=== PATIENT | female | born 1990 | race Two or more races ===

== ENCOUNTER 2018-03-23 11:50 | Inpatient (IN) | payer OTHER ==
[2018-03-24] MEDS ORDERED: DEXTROSE 5%-LACTATED RINGERS 1,000 ML IV SCH (00:45)
[2018-03-24] MEDS ORDERED: BUTORPHANOL TARTRATE 1 MG/ML VIAL IVPB ONE (00:57)
[2018-03-24] MEDS ORDERED: PROMETHAZINE HCL 25 MG/1 ML VIAL IVPUSH ONE (00:57)
[2018-03-24] MEDS ORDERED: AMPICILLIN - 2 GM in SODIUM CHLORIDE 100 ML IVPB ONE (01:00)
[2018-03-24] MEDS ORDERED: AMPICILLIN SODIUM 2 GM VIAL ONE (01:01)
[2018-03-24 01:21] LABS: INR 0.89 (0.83-1.09); PROTHROMBIN TIME (PATIENT) 10.5 SEC (9.7-13.0)
[2018-03-24 01:23] LABS: ACTIVATED PTT 25.9 SECONDS (25.2-36.5)
[2018-03-24 01:27] LABS: ANION GAP 10 MMOL/L (8-16); BLOOD UREA NITROGEN 6 mg/dL (7-18); CALCIUM 9.1 mg/dL (8.5-10.1); CHLORIDE 104 mmol/L (98-107); CO2 24 mmol/L (21-32); CREATININE 0.6 mg/dL (0.55-1.3); GLUCOSE,RANDOM 98 mg/dL (74-106); POTASSIUM 4.2 mmol/L (3.5-5.1); SODIUM 138 mmol/L (136-145)
[2018-03-24 01:30] LABS: BASO % 0.6 % (0-2.0); EOS % 1.4 % (0-4.5); HEMATOCRIT 39.3 % (32.4-45.2); HEMOGLOBIN 13.3 GM/dL (10.7-15.3); LYMPH % 23.2 % (8-40); MCH 28.3 pg (25.7-33.7); MEAN CELL VOLUME 83.3 fl (80-96); MEAN PLT VOLUME 9.8 fl (7.5-11.1); MONO % 7.4 % (3.8-10.2); NEUT % 67.4 % (42.8-82.8); PLATELET COUNT 204 K/MM3 (134-434); RBC 4.72 M/mm3 (3.60-5.2); RDW 14.8 % (11.6-15.6); WHITE BLOOD COUNT 11.1 K/mm3 (4.0-10.0)
--- NOTE | 2018-03-24 01:31 | HP ---
Past Medical History - Primary Care Physician PCP:: Maryse Fine - Admission Chief Complaint: 28 yrs , 39.4 weeks by dates , 39 weeks by sono c/o SROM at 8.45PM, Onset LP since (30 PM on 03/23/18. pt was evaluated for labor assess on 03/21/18, sent home . rx terazol 3 cream was given for yeast infection History of Present Illness: pt started care with Dr Austin PMBruce 's office, transferred to [address] [place] [address] . Only one visit panel 08/12/17 O pos, Hbsag neg, VDRL, nr, Rubella immune, varicella iimune, Hiv neg, Cf screen neg, sickle neg 1 hr Gtt 88 Quad screen neg, NT screen neg serial sono done by [facility] office for growth 01/06/18 & 02/14/18 sono reveals Left Kidney ,lower pole 1 cm cyst 02/14/18 32 weeks , all sono reports noted History Source: Patient, Medical Record Limitations to Obtaining History: No Limitations - Past Medical History [employer] J[employer]ER: No: Migraine, Seizure Cardiovascular: No: HTN, Murmur Pulmonary: No: Asthma, COPD Gastrointestinal: Yes: Constipation Hepatobiliary: No: Hepatitis B Renal/: No: UTI Reproductive: Yes: Other (pap 05/26/2017 neg) ...: 2 ...Para: 0 ...Term: 0 ...: 0 ...Spon : 1 ...Induced : 0 ...Multiple Gestation: 0 ...LMP: 06/20/17 ... Weeks Gestation by Dates: 39.4 ...EDC by Dates: 03/27/18 ...EDC by Sono: 03/31/18 (39 weeks by sono ) Heme/Onc: No: Anemia, B12 Deficiency, Bleeding Disorder, Cancer, Current Chemotherapy, Current Radiation Therapy, Hemochromatosis, Hypercoaguable State, Myeloproliferative Synd, Sickle Cell Disease, Sickle Cell Trait, Thrombocytopenia, Other Infectious Disease: No: AIDS, C-Diff, Herpes Zoster, HIV, MRSA, STD's, Tuberculosis, VREF, Other Psych: No: Addictions, Anxiety, Bipolar, Depression, Panic, Psychosis, Schizophrenia, Other Endocrine: No: Coffee's Disease, Kavon's Disease, Diabetes Insipidus, Diabetes Mellitus, Hyperparathyroidism, Hyperthyroidism, Hypothyroidism, Osteopenia, SIADH, Other - Past Surgical History Past Surgical History: Yes: None Hx Myomectomy: No Hx Transabdominal Cerclage: No - Smoking History Smoking history: Never smoked Have you smoked in the past 12 months: No - Alcohol/Substance Use Hx Alcohol Use: No History of Substance Use: reports: None Home Medications - Allergies Allergies/Adverse Reactions: Allergies Allergy/AdvReac Type Severity Reaction Status Date / Time No Known Drug Allergies Allergy Verified 03/24/18 01:04 seafood Allergy Intermediate Vomiting Uncoded 03/21/18 18:34 - Home Medications Home Medications: Ambulatory Orders Mljlydim19/Iron/Folic Acid/Dha [Prena1 Suzanna Softgel] 1 each PO DAILY 10/12/15 Miconazole Nitrate [Monistat 3] 15 gm VG HS #1 pkg 03/21/18 Physical Exam - Maternity Vital Signs: Vital Signs Temperature 97.8 F 03/24/18 00:20 Pulse Rate 104 H 03/24/18 00:20 Respiratory Rate 20 03/24/18 00:20 Blood Pressure 130/71 03/24/18 00:20 O2 Sat by Pulse Oximetry (%) wt 151 lbs Constitutional: Yes: Well Nourished, Moderate Distress Eyes: Yes: WNL HENT: Yes: WNL, Normocephalic Neck: Yes: WNL, Trachea Midline Cardiovascular: Yes: WNL, Regular Rate and Rhythm Lungs: Clear to auscultation Breast(s): Yes: WNL - Abdominal Exam/OB Fundal Height: 38 Number of Fetuses: Single Presentation: Vertex Contractions: Yes Regularity: Regular Intensity: Moderate Monitor Mode: External Heart Rate (range): 140 Heart Rate Location: [facility] Category: I Accelerations: Uniform Decelerations: None - Vaginal Exam/OB Vaginal Bleediing: No Speculum Exam: No Dilatation (cm): 5 Effacement (%): 90 Amniotic Membrane Status: Ruptured Nitrazine Test: Positive Amniotic Fluid: Yes: Clear Presentation: Vertex/Position (exam at 0.15 HR) Station: 0 - Physical Exam Extremities: Yes: WNL. No: Calf Tenderness Edema: LLE: 1+, RLE: 1+ Integumentary: Yes: Other (excessive facial hair) Deep Tendon Reflex Grade: Normal +2 ...Motor Strength: WNL Psychiatric: Yes: WNL, Alert, Oriented - Labs Lab Results: Laboratory Tests 03/24/18 03/24/18 03/24/18 00:45 00:45 00:45 WBC 11.1 H Hgb 13.3 Hct 39.3 Plt Count 204 PT with INR 10.50 INR 0.89 PTT (Actin FS) 25.9 Sodium 138 Potassium 4.2 Chloride 104 Carbon Dioxide 24 BUN 6 L Creatinine 0.6 Random Glucose 98 Calcium 9.1 HIV 1&2 Antibody Screen HIV P24 Antigen 03/24/18 00:45 WBC Hgb Hct Plt Count PT with INR INR PTT (Actin FS) Sodium Potassium Chloride Carbon Dioxide BUN Creatinine Random Glucose Calcium HIV 1&2 Antibody Screen Negative HIV P24 Antigen Negative Laboratory Tests 03/24/18 00:45 Blood Type O POSITIVE Antibody Screen Negative Problem List - Problems (1) with 39 completed weeks gestation Code(s): Z3A.39 - 39 WEEKS GESTATION OF (2) SROM (spontaneous rupture of membranes) Code(s): HTB3074 - (3) Labor established Code(s): LZX4018 - (4) Positive GBS test Code(s): B95.1 - STREPTOCOCCUS, GROUP B, CAUSING DISEASES CLASSD ELSWHR Assessment/Plan 28 yrs , 39 weeks by sono 39.4 weeks by dates , srom in labor gbs positive plan Iv Ampicillin Iv stadol + phenrgan for labor analgesia Trial vaginal delivery
[2018-03-24] MEDS ORDERED: BUTORPHANOL TARTRATE 1 MG/ML VIAL ONE ×2 (01:49)
[2018-03-24] MEDS ORDERED: PROMETHAZINE HCL 25 MG/1 ML VIAL ONE (01:49)
[2018-03-24] MEDS ORDERED: OXYTOCIN 20 UNITS in 0.9% NS 20 UNIT/1,000 ML INFUS.BAG IV ONE ×3 (04:51→16:53)
[2018-03-24] MEDS ORDERED: LIDOCAINE HCL 1% PRESERVATIVE FREE - 30ML VIAL ONE (04:53)
[2018-03-24] MEDS ORDERED: AMPICILLIN - 1 GM in SODIUM CHLORIDE 100 ML IVPB SCH (05:00)
--- NOTE | 2018-03-24 05:39 | PN ---
Progress Note, Labor Vaginal Exam #1 Labor Exam Date: 03/24/18 Labor Exam Time: 05:15 Heart Rate (range): 120 Dilatation: 10 Effacement (%): 100 Amniotic Membrane Status: Ruptured Presentation: Vertex/Position Station: +2 (+2/+3) Remarks: fhr cat-1 uc q2-3 min plan encourage to push
[2018-03-24 06:30] VITALS: BMI 24.7
[2018-03-24] MEDS ORDERED: TUBERCULIN PPD 5 TU/0.1ML SYRINGE (IN PATIENT USE ONLY) ID ONE (06:30)
--- NOTE | 2018-03-24 06:33 | PN ---
Delivery - Delivery Vaginal Delivery: No Problems, Spontaneous (pt delievered baby in [place] position, immediate oral & nasal suction was done, shoulder delievered without difficulty..) Episiotomy/Laceration: None, Perineal Extension/lac (perineal 1st degree laceration is noted , vagina seprated from perineal skin in circular manner from lt to rt . Vagina sutured with vulva to approximate together with chromic catgut #2/0 .Sponge & needle count correct.[place] exam mucosa & sphincter intact), 1st degree EBL (cc): 300 (bladder catheterized emtied 400 ml robert color ) Delivery, Single - Stages of Labor Date 1st Stage Initiatied: 03/23/18 Time 1st Stage Initiated: 21:30 Date 2nd Stage Initiated: 03/24/18 Time 2nd Stage Initiated: 05:15 Date of Delivery: 03/24/18 Time of Delivery: 05:42 Date Placenta Delivered: 03/24/18 Time Placenta Delivered: 05:47 Placenta: Yes: Spontaneous, Uterine Exploration - Condition of Infant Gender: Male Position: Left, OA - 1 Minute Total Score: 9 5 Minutes Total Score: 9 - [place] Feeding Plan Initial Plan: Elected not to breastfeed exclusively throughout hospitalization Remarks - Remarks Remarks: 28 yrs , 39 weeks , admitted with SROM & in labor Care transferred from Dr Austin's office to [address] [place] [address] GBS pos , rx 2 doses of IV Ampicillin IvStadol 2 mg + phenrgan 25 mg once for labor analgesia was given intrapartum course uneventful
[2018-03-24] MEDS ORDERED: METHYLERGONOVINE MALEATE 0.2 MG/1 ML AMP IM PRN (06:40)
[2018-03-24] MEDS ORDERED: WITCH HAZEL 50% (TUCKS) 40 PAD/JAR PAD TP PRN (06:40)
[2018-03-24] MEDS ORDERED: BISACODYL 10 MG SUPP.RECT RC PRN (06:40)
[2018-03-24] MEDS ORDERED: oxyCODONE HCL 5 MG TABLET PO PRN (06:40)
[2018-03-24] MEDS ORDERED: BENZOCAINE 28 GM HEMORRHOIDAL OINTMENT TP PRN (06:40)
[2018-03-24] MEDS ORDERED: ACETAMINOPHEN 325 MG TABLET (FP) PO PRN (06:40)
[2018-03-24] MEDS ORDERED: BENZOCAINE 20% 57 GM BOTTLE TP PRN (06:40)
[2018-03-24] MEDS: OXYTOCIN 20 UNITS in 0.9% NS 20 UNIT/1,000 ML INFUS.BAG IV SCH ×2 (07:00→17:05)
[2018-03-24] MEDS ORDERED: ACETAMINOPHEN 325 MG TABLET (FP) ONE (08:08)
[2018-03-24] MEDS ORDERED: IBUPROFEN 600 MG TABLET (FP) PO ONE (08:08)
[2018-03-24] MEDS: IBUPROFEN 600 MG TABLET (FP) PO PRN (08:19)
[2018-03-24] MEDS: FERROUS SO4 325 MG TABLET (FP) PO SCH ×2 (09:04→17:04)
[2018-03-24] MEDS: PRENATAL VITAMINS W/ FOLIC ACID TABLET (FP) PO SCH (09:04)
[2018-03-25 07:42] LABS: BASO % 0.6 % (0-2.0); EOS % 2.8 % (0-4.5); HEMATOCRIT 35.1 % (32.4-45.2); HEMOGLOBIN 11.2 GM/dL (10.7-15.3); LYMPH % 21.5 % (8-40); MCH 26.8 pg (25.7-33.7); MEAN PLT VOLUME 9.3 fl (7.5-11.1); MONO % 8.6 % (3.8-10.2); NEUT % 66.5 % (42.8-82.8); PLATELET COUNT 162 K/MM3 (134-434); RBC 4.18 M/mm3 (3.60-5.2); RDW 14.9 % (11.6-15.6); WHITE BLOOD COUNT 13.7 K/mm3 (4.0-10.0)
--- NOTE | 2018-03-25 07:53 | PN ---
Post Progress Note Type of Delivery: Vital Signs: Vital Signs Temperature 98 F 03/25/18 06:28 Pulse Rate 73 03/25/18 06:28 Respiratory Rate 18 03/25/18 06:28 Blood Pressure 107/68 03/25/18 06:28 O2 Sat by Pulse Oximetry (%) 100 03/24/18 08:30 Uterus: Yes: Fundus below umbilicus Abdomen/GI: Yes: Abdomen soft Lochia: Yes: Rubra Lochia, amount: Small Extremities: Yes: Calves non-tender - Labs Labs: CBC WBC 11.1 K/mm3 (4.0-10.0) H 03/24/18 00:45 RBC 4.72 M/mm3 (3.60-5.2) 03/24/18 00:45 Hgb 13.3 GM/dL (10.7-15.3) 03/24/18 00:45 Hct 39.3 % (32.4-45.2) 03/24/18 00:45 MCV 83.3 fl (80-96) 03/24/18 00:45 MCH 28.3 pg (25.7-33.7) 03/24/18 00:45 MCHC 34.0 g/dl (32.0-36.0) 03/24/18 00:45 RDW 14.8 % (11.6-15.6) D 03/24/18 00:45 Plt Count 204 K/MM3 (134-434) 03/24/18 00:45 MPV 9.8 fl (7.5-11.1) 03/24/18 00:45 Absolute Neuts (auto) 7.5 K/mm3 (1.5-8.0) 03/24/18 00:45 Neutrophils % 67.4 % (42.8-82.8) D 03/24/18 00:45 Lymphocytes % 23.2 % (8-40) 03/24/18 00:45 Monocytes % 7.4 % (3.8-10.2) 03/24/18 00:45 Eosinophils % 1.4 % (0-4.5) D 03/24/18 00:45 Basophils % 0.6 % (0-2.0) 03/24/18 00:45 Nucleated RBC % 0 % (0-0) 03/24/18 00:45 Assessment/Plan 28yo s/p , PPD#1 Routine PP care Labs reviewed Anticipate d/c to home by PPD#2 Ji Ledezma MD
[2018-03-25] MEDS: IBUPROFEN 600 MG TABLET (FP) PO PRN (09:13)
[2018-03-25] MEDS: PRENATAL VITAMINS W/ FOLIC ACID TABLET (FP) PO SCH (09:13)
[2018-03-25] MEDS: FERROUS SO4 325 MG TABLET (FP) PO SCH ×2 (09:13→17:22)
[2018-03-25] MEDS ORDERED: SENNOSIDES/DOCUSATE COMBO (SENNA PLUS) TABLET (UD) PO PRN (22:00)
[2018-03-26 08:39] VITALS: BP 119/80; PULSE 82; TEMP 97.7
[2018-03-26] MEDS: PRENATAL VITAMINS W/ FOLIC ACID TABLET (FP) PO SCH (09:03)
[2018-03-26] MEDS: FERROUS SO4 325 MG TABLET (FP) PO SCH (09:03)
[2018-03-26] MEDS: IBUPROFEN 600 MG TABLET (FP) PO PRN (09:04)
--- NOTE | 2018-03-26 10:15 | DS ---
Physical Exam-MEDIA SENIOR RECRUITER Vital Signs: Vital Signs Temperature 97.7 F 03/26/18 08:38 Pulse Rate 82 03/26/18 08:38 Respiratory Rate 20 03/26/18 08:38 Blood Pressure 119/80 03/26/18 08:38 O2 Sat by Pulse Oximetry (%) 100 03/24/18 08:30 Constitutional: Yes: Well Nourished Eyes: Yes: Conjunctiva Clear HENT: Yes: Atraumatic Neck: Yes: Supple Cardiovascular: Yes: Regular Rate and Rhythm Respiratory: Yes: Regular Gastrointestinal: Yes: Normal Bowel Sounds Renal/: Yes: WNL Pelvis: Yes: WNL External Genitalia: Yes: Normal Vaginal Exam: Yes: Normal ....Post : Yes: Uterus firm, Moderate lochia serosa Breast(s): Yes: WNL Neurological: Yes: Alert, Oriented ...Motor Strength: WNL Psychiatric: Yes: Alert, Oriented Labs: CBC, BMP 03/25/18 06:40 03/24/18 00:45 Delivery - Delivery Vaginal Delivery: No Problems, Spontaneous (pt delievered baby in [place] position, immediate oral & nasal suction was done, shoulder delievered without difficulty..) Type of Anesthesia: Local Episiotomy/Laceration: None, Perineal Extension/lac (perineal 1st degree laceration is noted , vagina seprated from perineal skin in circular manner from lt to rt . Vagina sutured with vulva to approximate together with chromic catgut #2/0 .Sponge & needle count correct.[place] exam mucosa & sphincter intact), 1st degree EBL (cc): 300 (bladder catheterized emtied 400 ml robert color ) Delivery, Single - Stages of Labor Date 1st Stage Initiatied: 03/23/18 Time 1st Stage Initiated: 21:30 Date 2nd Stage Initiated: 03/24/18 Time 2nd Stage Initiated: 05:15 Date of Delivery: 03/24/18 Time of Delivery: 05:42 Time Placenta Delivered: 05:47 Placenta: Yes: Spontaneous, Uterine Exploration - Condition of Store Cashier/Consulting Database Administrator Present: No Infant Gender: Male Weight: 6 lb 11 oz Position: Left, OA Total Hours ROM (Hrs/Mins): 9hrs/12minutes - 1 Minute Total Score: 9 5 Minutes Total Score: 9 - Feeding Plan Initial Plan: Elected not to breastfeed exclusively throughout hospitalization Discharge Summary Reason For Visit: LABOR ADMIT Current Active Problems Labor established (Acute) Positive GBS test (Acute) with 39 completed weeks gestation (Acute) SROM (spontaneous rupture of membranes) (Acute) Procedures: Principal: Normal vaginal delivery Hospital Course: Routine care Condition: Good - Instructions Diet, Activity, Other Instructions: return to clinic in 4-6 weeks for check. call [facility] for appointment. [phone] Disposition: HOME - Home Medications Comprehensive Discharge Medication List: Ambulatory Orders Phqivfjy07/Iron/Folic Acid/Dha [Prena1 Suzanna Softgel] 1 each PO DAILY 10/12/15 Miconazole Nitrate [Monistat 3] 15 gm VG HS #1 pkg 03/21/18
== END 2018-03-26 13:30 | disposition home or self-care (01) | DRG 560 ==
LOC: JDEL 11:50 → JLDR 03-24 00:20 → J3W 03-24 08:36
PROVIDERS: ADMIT Obstetrics & Gynecology; ATTEND Obstetrics & Gynecology
PROC: 10E0XZZ Delivery of Products of Conception, External Approach (ICD-10-PCS; principal; 2018-03-24)
PROC: 0HQ9XZZ Repair Perineum Skin, External Approach (ICD-10-PCS; 2018-03-24)
DX: O99.824 Streptococcus B carrier state complicating childbirth (principal); O70.0 First degree perineal laceration during delivery; Z3A.39 39 weeks gestation of pregnancy; Z37.0 Single live birth
CPT/HCPCS: 36415; 59409; 71046-TC-FY; 80048; 85025; 85610; 85730; 86593; 86762; 86850; 86900; 86901; 87389

== ENCOUNTER 2022-09-28 16:35 | Emergency (ER) | payer OTHER ==
[2022-09-28 16:45] VITALS: RESP 18; TEMP 98.2; BMI 22.8
[2022-09-28 18:43] LABS: BASO % 0.5 % (0-2.0); EOS % 6.3 % (0-4.5); HEMATOCRIT 35.6 % (32.4-45.2); HEMOGLOBIN 12.1 GM/dL (10.7-15.3); LYMPH % 25.3 % (8-40); MCH 28.8 pg (25.7-33.7); MCHC 33.9 g/dl (32.0-36.0); MEAN CELL VOLUME 84.9 fl (80-96); MEAN PLT VOLUME 9.5 fl (7.5-11.1); MONO % 9.1 % (3.8-10.2); NEUT % 58.8 % (42.8-82.8); PLATELET COUNT 158 10^3/uL (134-434); RBC 4.19 M/mm3 (3.60-5.2); RDW 14.2 % (11.6-15.6); WHITE BLOOD COUNT 10.8 K/mm3 (4.0-10.0)
[2022-09-28 18:44] LABS: HCG,QUALITATIVE URINE Positive
[2022-09-28 18:48] LABS: EPI CELLS >36 /uL (0-25.1); HYALINE CASTS 0 /uL (0-3.1); PH,URINE 7.5 (5.0-8.0); URINE APPEARANCE CLOUDY; URINE BACTERIA 1670 /uL (0-1359); URINE BILIRUBIN NEGATIVE (NEGATIVE); URINE COLOR YELLOW; URINE GLUCOSE (UA) NEGATIVE (NEGATIVE); URINE KETONE NEGATIVE (NEGATIVE); URINE LEUK ESTERASE TRACE (NEGATIVE); URINE NITRITE NEGATIVE (NEGATIVE); URINE PROTEIN NEGATIVE (NEGATIVE); URINE RBC 10 /uL (0-23.9); URINE UROBILINOGEN 0.2 mg/dL (0.2-1.0); URINE WBC 13 /uL (0-25.8)
[2022-09-28 18:54] LABS: POTASSIUM 4.4 mmol/L (3.5-5.1)
[2022-09-28 18:56] LABS: CALCIUM 8.9 mg/dL (8.5-10.1)
[2022-09-28 18:57] LABS: ALBUMIN 3.1 g/dl (3.4-5.0); BLOOD UREA NITROGEN 4.1 mg/dL (7-18)
[2022-09-28 19:00] LABS: CREATININE 0.6 mg/dL (0.55-1.3)
[2022-09-28 19:02] LABS: BILIRUBIN,TOTAL 0.2 mg/dL (0.2-1); TOT PROT 6.6 g/dl (6.4-8.2)
[2022-09-28 20:54] VITALS: BP 110/80; PULSE 89
[2022-09-28 21:54] LABS: ACTIVATED PTT 21.7 SECONDS (25.2-36.5); INR 0.94 (0.83-1.09); PROTHROMBIN TIME (PATIENT) 10.9 SEC (9.7-13.0)
== END 2022-09-28 21:50 | disposition home or self-care (01) ==
LOC: JER 16:35
DX: O26.852 Spotting complicating pregnancy, second trimester (principal); Z3A.19 19 weeks gestation of pregnancy
CPT/HCPCS: 36415; 76815-TC; 80053; 81003; 84702; 84703; 85025; 85610; 85730; 86850; 86900; 86901; 99285-25

== ENCOUNTER 2023-02-25 19:55 | Inpatient (IN) | payer OTHER ==
[2023-02-26] MEDS ORDERED: BENZOCAINE 28 GM HEMORRHOIDAL OINTMENT TP PRN (02:15)
[2023-02-26] MEDS ORDERED: oxyCODONE HCL 5 MG TABLET PO PRN (02:15)
[2023-02-26] MEDS ORDERED: BENZOCAINE 20% 57 GM BOTTLE TP PRN (02:15)
[2023-02-26] MEDS ORDERED: METHYLERGONOVINE MALEATE 0.2 MG/1 ML AMP IM PRN (02:15)
[2023-02-26] MEDS ORDERED: WITCH HAZEL 50% (TUCKS) 40 PAD/JAR PAD TP PRN (02:15)
[2023-02-26] MEDS ORDERED: BISACODYL 10 MG SUPP.RECT RC PRN (02:15)
[2023-02-26] MEDS: IBUPROFEN 600 MG TABLET (FP) PO PRN ×2 (02:15→22:27)
[2023-02-26] MEDS ORDERED: DEXTROSE 5%-LACTATED RINGERS 1,000 ML IV SCH (02:15)
[2023-02-26] MEDS ORDERED: ACETAMINOPHEN 325 MG TABLET (FP) PO PRN (02:15)
[2023-02-26] MEDS ORDERED: OXYTOCIN 20 UNITS in 0.9% NS 20 UNIT/1,000 ML INFUS.BAG IV SCH (02:15)
[2023-02-26] MEDS ORDERED: ELECTROLYTE-148 SOLN 1,000 ML IV SCH (02:30)
[2023-02-26 03:41] LABS: BASO % 0.4 % (0-2.0); EOS % 2.2 % (0-4.5); HEMOGLOBIN 11.5 GM/dL (10.7-15.3); LYMPH % 17.1 % (8-40); MCH 28.7 pg (25.7-33.7); MCHC 33.7 g/dl (32.0-36.0); MEAN CELL VOLUME 85.3 fl (80-96); MEAN PLT VOLUME 9.2 fl (7.5-11.1); MONO % 7.7 % (3.8-10.2); NEUT % 72.6 % (42.8-82.8); PLATELET COUNT 132 10^3/uL (134-434); RBC 3.99 M/mm3 (3.60-5.2); RDW 16.6 % (11.6-15.6); WHITE BLOOD COUNT 10.4 K/mm3 (4.0-10.0)
[2023-02-26 03:50] LABS: INR 0.97 (0.83-1.09); PROTHROMBIN TIME (PATIENT) 11.3 SEC (9.7-13.0)
[2023-02-26 03:53] LABS: ACTIVATED PTT 26.2 SECONDS (25.2-36.5)
[2023-02-26 04:07] LABS: BLOOD UREA NITROGEN 3.8 mg/dL (7-18); CALCIUM 7.9 mg/dL (8.5-10.1)
[2023-02-26 04:11] VITALS: BMI 26.8
[2023-02-26 04:11] LABS: CREATININE 0.4 mg/dL (0.55-1.3)
[2023-02-26 04:36] LABS: HEPATITIS B SURFACE AG MATERN NON-REACTIVE (NONREACTIVE); SYPHILIS W/ RPR CONF NON-REACTIVE (NONREACTIVE)
[2023-02-26] MEDS ORDERED: FLU VACCINE (FLULAVAL) PF 60 MCG/0.5 ML SYRINGE 2023-2024 IM ONE (10:00)
[2023-02-26] MEDS: FERROUS SO4 325 MG TABLET (FP) PO SCH (10:57)
[2023-02-26] MEDS: PRENATAL VITAMINS W/ FOLIC ACID TABLET (FP) PO SCH (10:57)
[2023-02-27 08:19] LABS: BASO % 0.5 % (0-2.0); EOS % 4.1 % (0-4.5); HEMATOCRIT 31.3 % (32.4-45.2); HEMOGLOBIN 10.5 GM/dL (10.7-15.3); LYMPH % 19.9 % (8-40); MCH 28.2 pg (25.7-33.7); MCHC 33.4 g/dl (32.0-36.0); MEAN CELL VOLUME 84.3 fl (80-96); MONO % 9.7 % (3.8-10.2); NEUT % 65.8 % (42.8-82.8); PLATELET COUNT 122 10^3/uL (134-434); RBC 3.71 M/mm3 (3.60-5.2); RDW 16.6 % (11.6-15.6); WHITE BLOOD COUNT 11.4 K/mm3 (4.0-10.0)
[2023-02-27] MEDS: FERROUS SO4 325 MG TABLET (FP) PO SCH (09:39)
[2023-02-27] MEDS: PRENATAL VITAMINS W/ FOLIC ACID TABLET (FP) PO SCH (09:39)
[2023-02-27] MEDS: IBUPROFEN 600 MG TABLET (FP) PO PRN (20:29)
[2023-02-27] MEDS ORDERED: SENNOSIDES/DOCUSATE COMBO (SENNA PLUS) TABLET (UD) PO PRN (22:00)
[2023-02-27 22:14] VITALS: TEMP 98.1
[2023-02-28] MEDS: PRENATAL VITAMINS W/ FOLIC ACID TABLET (FP) PO SCH (12:16)
[2023-02-28] MEDS: FERROUS SO4 325 MG TABLET (FP) PO SCH (12:16)
[2023-02-28 13:20] VITALS: BP 137/84; PULSE 76; RESP 16
[2023-03-02 09:23] LABS: POC NITRAZINE POS
== END 2023-02-28 14:45 | disposition home or self-care (01) | DRG 560 ==
LOC: JDEL 19:55 → JLDR 02-26 00:35 → J3W 02-26 05:51
PROVIDERS: ADMIT Obstetrics & Gynecology; ATTEND Obstetrics & Gynecology
PROC: 10E0XZZ Delivery of Products of Conception, External Approach (ICD-10-PCS; principal; 2023-02-25)
DX: O80 Encounter for full-term uncomplicated delivery (principal); Z3A.38 38 weeks gestation of pregnancy; Z37.0 Single live birth
CPT/HCPCS: 36415; 59025; 80048; 83986-QW; 85025; 85610; 85730; 86780; 86850; 86900; 86901; 87340; 90686; G0008